=== PATIENT | male | born 1980 | race Caucasian/White ===

== ENCOUNTER 2018-12-04 10:12 | Emergency (ER) | payer MEDICAID, OTHER ==
[~2018-12-04] VITALS: Ht 175.3 cm; Wt 99.8 kg
[2018-12-04] MEDS ORDERED: SODIUM CHLORIDE 0.9% 500 ML IV ONE (11:39)
[2018-12-04] MEDS ORDERED: ONDANSETRON HCL 4 MG/2 ML VIAL IV ONE ×2 (11:45→16:45)
[2018-12-04] MEDS ORDERED: MORPHINE SULFATE 10 MG/ML INJ 1ML SDV IV ONE (11:45)
[2018-12-04 12:18] LABS: Basophils # (auto) 0.1 uL; Basophils % (auto) 0.5 % (0.0-2.0); Eosinophils # (auto) 0 uL; Eosinophils % (auto) 0.4 % (0.0-7.0); Hematocrit 49.6 % (41.0-53.0); Hemoglobin 16.8 g/dL (13.5-17.5); Lymphocytes # (auto) 1.9 uL; Lymphocytes % (auto) 16.8 % (10.0-50.0); Mean Corpuscular Hemoglobin 31.2 pg (28.0-32.0); Mean Corpuscular Hgb Conc. 33.8 g/dL (32.0-36.0); Mean Corpuscular Volume 92.4 fL (80.0-100.0); Monocytes # (auto) 0.7 uL; Monocytes % (auto) 6.3 % (0.0-12.0); Neutrophils # (auto) 8.7 uL; Nucleated Red Blood Cells % 0.1 %; Platelet Count (auto) 265 10^3/uL (140-450); Red Blood Cells 5.36 10^6/uL (4.5-5.90); Red Cell Distribution Width 13.9 % (11.8-14.3); White Blood Cell 11.4 10^3/uL (4.4-10.8)
[2018-12-04 12:30] LABS: Albumin 4.7 g/dL (3.4-5.0); BUN/Creatinine Ratio 7.7; Calcium 8.4 mg/dL (8.5-10.1); Potassium 3.8 mmol/L (3.5-5.1)
[2018-12-04 12:33] LABS: Bilirubin, Total 0.4 mg/dL (0.2-1.0); INR 0.89 (0.9-1.15); Partial Thromboplastin Time 24.2 sec (23.78-33.04); Prothrombin Time 9.6 sec (9.27-12.13); Total Protein 8.5 g/dL (6.4-8.2)
[2018-12-04] MEDS ORDERED: HYDROmorphone HCL 2 MG/ML VL IV ONE (16:45)
[2018-12-04 17:55] VITALS: BP 125/62
== END 2018-12-04 18:12 | disposition short-term general hospital (02) ==
LOC: ER 10:15
DX: S82.142A Displaced bicondylar fracture of left tibia, initial encounter for closed fracture (principal); F10.10 Alcohol abuse, uncomplicated; F17.210 Nicotine dependence, cigarettes, uncomplicated; Z91.81 History of falling; W01.0XXA Fall on same level from slipping, tripping and stumbling without subsequent striking against object, initial encounter; Y93.01 Activity, walking, marching and hiking; Y92.89 Other specified places as the place of occurrence of the external cause; Y99.8 Other external cause status
CPT/HCPCS: 36415; 73700; 80053; 85025; 85610; 85730; 94761; 96374; 96375; 96376; 99285; J1170; J2270; J2405; J7030